=== PATIENT | female | born 1945 | race Caucasian/White ===

== ENCOUNTER 2020-10-27 17:04 | Emergency (ER) | payer MEDICARE, MEDICAID ==
[~2020-10-27 17:04] MED LIST: ACETAMINOPHEN-H1 TA2 PO; ELMIRON100 MG PO; LORAZEPAM1 MG PO; NAPROSYN500 MG PO; ONDANSETRON HYDR4 MG PO; PROPRANOLOL HCL60 MG PO; SERTRALINE HYDR50 MG PO; SIMVASTATIN40 MG PO; TOLTERODINE TART4 M1 PO; VALACYCLOVIR H500 M1 PO
[2020-10-27 17:48] LABS: BASO % 0.2 % (0.0-1.0); EOS % 0.4 % (1.0-4.0); HEMATOCRIT 41.2 % (37.0-47.0); LYMPH # 0.9 10*3/uL (1.3-4.4); LYMPH % 9.2 % (27.0-41.0); MEAN CELL VOLUME 90.7 fl (81.0-99.0); MEAN CORPUSCULAR HGB 29.1 pg (27.0-31.0); MEAN PLATELET VOLUME 9.8 fl (9.6-12.3); MONO # 0.5 10*3/uL (0.1-1.0); NEUT # 8.5 10*3/uL (2.3-7.9); NEUT % 84.8 % (47.0-73.0); PLATELET COUNT AUTOMATED 213 10*3/uL (130-400); RED BLOOD COUNT 4.54 10*6/uL (4.10-5.10); RED CELL DISTRI WIDTH 12.7 % (0-14.5); WHITE BLOOD COUNT 10.1 10*3/uL (4.8-10.8)
[2020-10-27 18:06] LABS: ALKALINE PHOSPHATASE 68 U/L (45-117); BUN 13 mg/dl (7-24); CHLORIDE 104 mmol/L (98-107); CREATININE 0.88 mg/dL (0.55-1.02); LIPASE 139 U/L (73-393); POTASSIUM 4.1 mmol/L (3.5-5.1); SGOT/AST 20 IU/L (3-35); SGPT/ALT 21 U/L (12-78); SODIUM 139 mmol/L (136-145)
[2020-10-27 18:34] LABS: BILIRUBIN Negative (Negative); BLOOD 3+ (Negative); CLARITY Clear (Clear); COLOR Yellow (Yellow); GLUCOSE Negative (Negative); KETONE Negative (Negative); LEUKO ESTERASE Negative (Negative); NITRITE Negative (Negative); PH 6.5 (4.5-8.0); UROBILINOGEN 0.2 E.U./dl (0.0-1.0)
[2020-10-27 19:00] LABS: BACTERIA TRACE; EPITHELIAL CELLS 0-2; RBC TNTC rbc/hpf (0-2); WBC 0-2 wbc/hpf (0-5)
== END 2020-10-27 20:36 | disposition home or self-care (01) ==
LOC: ED 17:04
PROVIDERS: Nurse Practitioner Family
DX: N20.0 Calculus of kidney (principal); Z91.040 Latex allergy status; Z79.899 Other long term (current) drug therapy

== ENCOUNTER → 2021-10-21 | Outpatient (CLI) | payer MEDICARE, MEDICAID | END | disposition home or self-care (01) | LOC: COVID19 15:53 | PROVIDERS: ATTEND Internal Medicine | DX: U07.1 COVID-19 (principal) ==